=== PATIENT | male | born 1945 | race Caucasian/White ===

== ENCOUNTER 2019-09-18 19:07 | Emergency (ER) | payer OTHER ==
[~2019-09-18] VITALS: Ht 177.8 cm; Wt 68.0 kg
[2019-09-18] MEDS ORDERED: CIPRO500 MG PO (21:21)
[2019-09-18] MEDS ORDERED: ORPHENADRINE C100 MG PO (21:21)
[2019-09-18] MEDS ORDERED: DICLOFENAC POTA50 MG PO (21:21)
== END 2019-09-18 22:48 | disposition home or self-care (01) ==
LOC: ER 19:07
DX: S00.511A Abrasion of lip, initial encounter (principal); S90.211A Contusion of right great toe with damage to nail, initial encounter; W18.39XA Other fall on same level, initial encounter; Y93.89 Activity, other specified; Y92.89 Other specified places as the place of occurrence of the external cause; Y99.8 Other external cause status

== ENCOUNTER 2021-07-06 12:01 | Outpatient (CLI) | payer OTHER ==
[~2021-07-06 12:01] MED LIST: CIPRO500 MG PO; DICLOFENAC POTA50 MG PO; ORPHENADRINE C100 MG PO
== END 2021-07-06 12:10 | disposition home or self-care (01) ==
LOC: SONOGRAMA 12:01
PROVIDERS: ATTEND Otolaryngology
DX: R22.1 Localized swelling, mass and lump, neck (principal); R42 Dizziness and giddiness

== ENCOUNTER 2023-09-26 06:18 | Day surgery (SDC) | payer OTHER ==
[~2023-09-26] VITALS: Ht 177.8 cm; Wt 68.0 kg
[~2023-09-26 06:18] MED LIST changes: +TAMS0.4C PO
[2023-09-26] MEDS ORDERED: LIDOCAINE HCL 1%/Epi 20ML VIAL IJ ONE (11:38)
[2023-09-26] MEDS ORDERED: CEFAZOLIN SODIUM 1,000 MG VIAL ONE (11:38)
[2023-09-26] MEDS ORDERED: LIDOCAINE HCL 1% 200MG/20ML VIAL IJ ONE (11:49)
[2023-09-26] MEDS ORDERED: CEFAZOLIN SODIUM 1,000 MG VIAL IV ONE (12:00)
[2023-09-26] MEDS ORDERED: ONDANSETRON HCL 2 MG/ML VIAL IV ONE (12:15)
[2023-09-26] MEDS ORDERED: MORPHINE SULFATE 4 MG in 0.9 % SODIUM CHLORIDE 9 ML IV PRN (12:15)
[2023-09-26] MEDS ORDERED: MEPERIDINE HCL/PF 25 MG/ML VIAL IV PRN (12:15)
== END 2023-09-26 16:20 | disposition home or self-care (01) ==
LOC: CIR.AMB 06:18
PROVIDERS: ATTEND Surgery
DX: K40.30 Unilateral inguinal hernia, with obstruction, without gangrene, not specified as recurrent (principal); Z20.822 Contact with and (suspected) exposure to COVID-19

== ENCOUNTER 2024-06-20 09:47 | Day surgery (SDC) | payer OTHER ==
[2024-06-17 11:50] LABS: HEMATOCRIT 39.2 % (39.0-48.0); HEMOGLOBIN 13.2 g/dL (13-16.00); MEAN CELL VOLUME 91.2 fL (80.0-100.00); MEAN CORPUSCULAR HEMOGLOBIN 30.8 pg (27.00-32.0); MEAN CORPUSCULAR HGB CONC 33.8 g/dl (32.0-36.0); RED CELL DISTRIBUTION WIDTH 13.4 % (11.5-14.5)
[2024-06-17 11:52] LABS: PLATELET COUNT 128 K/uL (150-450)
[2024-06-17 11:57] LABS: URINE APPEARANCE Clear; URINE BILIRRUBIN Negative (NEGATIVE); URINE BLOOD Negative; URINE COLOR Yellow; URINE GLUCOSE Negative (NEGATIVE); URINE KETONE Trace (NEGATIVE); URINE LEUKOCYTE Negative; URINE NITRATE Negative; URINE PROTEIN Negative (NEGATIVE); URINE UROBILINOGEN 0.2 E.U./dl
[2024-06-17 12:02] LABS: URINE RBC 8.5 uL (0.0-20.8)
[2024-06-17 12:03] LABS: URINE BACTERIA 1.2 uL (0.0-1933); URINE EPITHELIAL CELLS 0.6 uL (0.0-38.8); URINE WBC 1.2 uL (0.0-23.2)
[2024-06-17 12:20] LABS: INR 1.01; PARTIAL THROMBOPLASTIN TIME 28.2 SECONDS (22.0-34.0)
[2024-06-17 12:29] LABS: CREATININE SERUM 0.76 mg/dL (0.70-1.30); GFR 99.72; POTASSIUM 4.36 mEq/L (3.5-5.1)
[2024-06-20] MEDS ORDERED: KETO10TA2 PO (11:22)
[2024-06-20] MEDS ORDERED: MIRALAX17 GM PO (11:22)
[2024-06-20] MEDS ORDERED: TRAMADOL HCL50 MG PO (11:22)
[2024-06-20] MEDS ORDERED: TYLENOL ARTHRI650 MG PO (11:22)
[2024-06-20] MEDS ORDERED: BUPIVACAINE HCL 30 ML VIAL IJ ONE (14:00)
[2024-06-20] MEDS ORDERED: CEFAZOLIN SODIUM 1,000 MG VIAL IV ONE (14:00)
[2024-06-20] MEDS ORDERED: SUGAMMADEX SODIUM 200 MG/2 ML VIAL IV ONE (14:30)
== END 2024-06-20 17:50 | disposition home or self-care (01) ==
LOC: CIR.AMB 09:47
PROVIDERS: ATTEND Surgery
DX: K40.91 Unilateral inguinal hernia, without obstruction or gangrene, recurrent (principal); K42.0 Umbilical hernia with obstruction, without gangrene
CPT/HCPCS: 49651; 49592; C1781